=== PATIENT | male | born 1975 | race Caucasian/White ===

== ENCOUNTER 2019-03-12 12:31 | Emergency (ER) | payer MEDICARE ==
[2019-03-12] MEDS ORDERED: SODIUM CHLORIDE 0.9% 500 ML 500 ML IV STA (12:40)
[2019-03-12 12:43] VITALS: RESP 18
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
[2019-03-12 12:52] LABS: Basophils # (A) 0.1 k/uL (0-0.2); Basophils % (A) 1 %; Eosinophils # (A) 0.2 k/uL (0-0.7); Eosinophils % (A) 2 %; HCT 53.4 % (39.0-53.0); HGB 18.1 gm/dL (13.0-17.5); Lymphocytes # (A) 1.3 k/uL (1.0-4.8); Lymphocytes % (A) 14 %; MCHC 33.9 g/dL (31.0-37.0); MCV 88.4 fL (80.0-100.0); Mean Platelet Volume 7.2; Monocytes # (A) 0.5 k/uL (0-1.0); Monocytes % (A) 5 %; Neutrophils # (A) 7.6 k/uL (1.3-7.7); Neutrophils % (A) 77 %; Platelet Count 145 k/uL (150-450); RBC 6.04 m/uL (4.30-5.90)
--- NOTE | 2019-03-12 13:04 | XR ---
EXAMINATION TYPE: XR chest 2V DATE OF EXAM: 03/12/2019 COMPARISON: NONE HISTORY: Dysrhythmia. Palpitations. TECHNIQUE: Frontal and lateral views of the chest are obtained. FINDINGS: There is no focal air space opacity, pleural effusion, or pneumothorax seen. The cardiac silhouette size is within normal limits. The osseous structures are intact. There is a questionable 2.4 cm density overlying the lower thoracic spine on the lateral view only. Cholecystectomy clips ar e seen. IMPRESSION: 1. No acute cardiopulmonary process. 2. Questionable 2.4 cm density overlying the spine seen on the lateral view only. Nonemergent CT thor ax is recommended to further evaluate the finding.
[2019-03-12 13:05] LABS: ALT 98 U/L (21-72); AST 74 U/L (17-59); African American GFR (CKD) >90 (>60 ml/min/1.73 sqM); Albumin 4.3 g/dL (3.5-5.0); Alkaline Phosphatase 69 U/L (38-126); Anion Gap 11 mmol/L; Blood Urea Nitrogen 17 mg/dL (9-20); Calcium 9.6 mg/dL (8.4-10.2); Carbon Dioxide 24 mmol/L (22-30); Chloride 107 mmol/L (98-107); D-Dimer 0.32 mg/L FEU (<0.60); Glucose 133 mg/dL (74-99); INR 0.9 (<1.2); Magnesium 2.1 mg/dL (1.6-2.3); Partial Thromboplastin Time 26.3 sec (22.0-30.0); Potassium 3.8 mmol/L (3.5-5.1); Prothrombin Time 9.9 sec (9.0-12.0); Sodium 142 mmol/L (137-145); Total Bilirubin 1.1 mg/dL (0.2-1.3); Total Protein 7.2 g/dL (6.3-8.2)
[2019-03-12 13:20] LABS: T4, Free (Free Thyroxine) 1.52 ng/dL (0.78-2.19)
[2019-03-12 14:39] VITALS: BP 113/75; PULSE 76; TEMP 98.5
== END 2019-03-12 14:40 | disposition home or self-care (01) ==
LOC: EC 12:31
DX: I47.1 Supraventricular tachycardia (principal); Z79.890 Hormone replacement therapy; Z88.8 Allergy status to other drugs, medicaments and biological substances
CPT/HCPCS: 36415; 71046; 80053; 83735; 84439; 84443; 84484; 85025; 85379; 85610; 85730; 93005; 96360; 99285